=== PATIENT | female | born 1940 | race Caucasian/White ===

== ENCOUNTER → 2024-08-06 11:36 | Outpatient (REF) | payer MEDICARE, BC, SELFPAY | LOC: HWRAD 11:36 | PROVIDERS: ATTENDING PHYSICIAN Family Medicine | DX: K40.90 Unilateral inguinal hernia, without obstruction or gangrene, not specified as recurrent (principal) | CPT/HCPCS: 74177; Q9967 ==

== ENCOUNTER 2024-08-20 20:52 | Emergency (ER) | payer MEDICARE, BC, SELFPAY ==
[2024-08-20 20:54] VITALS: BP 154/114
[2024-08-20] MEDS: ZOFRAN ODT (ORALLY DISINTEGRATING) 4 MG PO (21:02)
[2024-08-20 21:12] LABS: % Basophils 0.7 % (0-2); % Eosinophils 5.5 % (0-6); % Immature Granulocytes 0.3 % (0-0.5); % Lymphocytes 25.5 % (20.5-51.1); % Monocytes 8.5 % (1.7-9.3); % Neutrophils 59.5 % (42.2-75.2); Absolute Basophils 0.1 10^3/uL (0-0.2); Absolute Eosinophils 0.4 10^3/uL (0-0.7); Absolute Lymphocytes 1.8 10^3/uL (1.2-3.4); Absolute Monocytes 0.6 10^3/uL (0.1-0.6); Absolute Neutrophils 4.1 10^3/uL (1.4-6.5); Hematocrit 37.1 % (37.0-47.0); Hemoglobin 12.4 g/dL (12.0-16.0); Mean Corp Hgb Conc. 33.4 g/dL (33.0-37.0); Mean Corpuscular Hgb 28.9 pg (27.0-31.0); Mean Corpuscular Volume 86.5 fL (81.0-99.0); Mean Platelet Volume 8.7 fL (7.4-10.4); Nucleated Red Blood Cells % 0 %; Platelet Count 221 10^3/uL (130-400); Red Blood Cell Count 4.29 10^6/uL (4.20-5.40); Red Cell Dist. Width 13.3 % (11.5-14.5); White Blood Cell Count 6.9 10^3/uL (4.8-10.8)
[2024-08-20 21:31] LABS: ALT (SGPT) 18 U/L (0-35); AST (SGOT) 25 U/L (14-36); Albumin 4.7 g/dl (3.5-5.0); Alkaline Phosphatase 65 U/L (38-126); Blood Urea Nitrogen 26 mg/dl (7-17); Calcium 9.6 mg/dl (8.4-10.2); Carbon Dioxide 24 mmol/L (22-30); Chloride 106 mmol/L (98-107); Glucose 149 mg/dl (70-99); Lipase 279 U/L (23-300); Potassium 4.7 mmol/L (3.5-5.1); Sodium 142 mmol/L (135-145); Total Protein 7.4 g/dl (6.3-8.2); eGFR > 60.00
--- NOTE | 2024-08-20 22:47 | ED.GENMED ---
History of Present Illness
General
Chief Complaint: Abdominal Symptoms
Source: patient
Exam Limitations: none
Time Seen by Provider: 08/20/24 22:38
History of Present Illness
History of Present Illness:
See MDM
Past History
Past History
ED Past Medical History: HTN and Other (MS)
Social History
Tobacco: Non-smoker
Alcohol: None
Drug: None
Personal:
Living: with family
Phy Exam
Physical Exam
Physical Exam:
See MDM
Course
Orders/Labs/Results
Orders:
Orders
08/20/24 21:01
Ondansetron Orally Disint [Zofran Odt (Orally Disintegrating)] 4 mg .ROUTE .STK-MED ONE
08/20/24 21:02
Ondansetron Orally Disint [Zofran Odt (Orally Disintegrating)] 4 mg PO NOW STA
08/20/24 21:07
Complete Blood Count/With Diff Urgent
Comprehensive Metabolic Panel Urgent
Lipase Urgent
08/20/24 22:47
Ketorolac [Toradol] 30 mg IM NOW STA
08/21/24 00:00
US Abdomen Complete/Upper Urgent
Reason For Exam: RUQ pain
Abnormal Lab Results
08/20/24
21:07
BUN 26 H mg/dl
(7-17)
Glucose 149 H mg/dl
(70-99)
08/20/24 21:07
08/20/24 21:07
Vital Signs
Initial and Last Documented VS:
Initial Vital Signs
Temp Pulse Resp BP Pulse Ox
99.2 F 80 24 154/114 97
08/20/24 20:54 08/20/24 20:54 08/20/24 20:54 08/20/24 20:54 08/20/24 20:54
Last Documented Vital Signs
Temp Pulse Resp BP Pulse Ox
98.0 F 75 24 149/79 93
08/20/24 23:26 08/20/24 23:26 08/20/24 20:54 08/20/24 23:26 08/20/24 23:26
MDM/Problems Addressed
Differential Diagnosis Includes:
HPI and MDM Narrative:
84-year-old female presenting to the ED for evaluation of ongoing abdominal pain. Patient had outpatient CT showing left inguinal hernia. No evidence of small bowel obstruction. There is also concern for chronic inflammatory changes of the
gallbladder versus possible neoplasm she is scheduled to see surgery next week and scheduled for outpatient ultrasound. Patient developed worsening pain today and called 911. While in the waiting room, her pain self resolved. Patient states she
is feeling much better and feels like her left lower groin hernia is improving. Patient still uncomfortable and requesting ultrasound
Physical exam
General: Well appearing and non-toxic
HEENT: protecting airway
Neck: appears supple
CV: No evidence of cyanosis
Resp: No accessory muscle use
Abd: Non-distended. Palpable hernia left inguinal canal. No skin changes
Extremities: No deformities
Neuro: alert
Psych: Normal affect
Skin: Intact
Problems Addressed including Acute and Chronic Conditions affecting care:
1. Left inguinal hernia
Acuity: acute
Prognosis: stable
Details: Recent CT showed no evidence of small bowel obstruction. Symptoms are improving somewhat. She has outpatient appointment with surgery next week
Updates
Ultrasound without acute pathology. Patient states she wants to go home and feels better
Differential Diagnosis (but not limited to): Small bowel obstruction, hernia
Testing considered: Repeat CT but symptoms are improving
Drug therapy (if applicable): OTC meds, please see d/c instruction regarding Rx drugs
Amount and/or Complexity of Data Reviewed
Clinical info obtained from: Patient
External data reviewed: N/A
Labs I independently reviewed (but not limited to): White blood cell count
Radiology: Ultrasound report reviewed
Pulse Ox: not hypoxic
EKG independently reviewed: N/A
Systems Engineer: N/A
Critical Care: N/A
Risk of Complication:
Social Determinants of health: Good social support
Discussed with other providers: N/A
Escalation of Care includes Admit/Obs: After being observed in the Emergency Department, pt stable for discharge.
Occasional wrong word or 'sound a like' substitutions may have occurred due to the inherent limitations of voice recognition software. Read the chart carefully and recognize, using context, where substitutions have occurred.
*Critical Care Note
Total Time (30-74mins, 75-104mins- exclusive of procedures): Not Applicable
ED Attending Note
-
Portions of this chart may have been created with voice recognition software.� Occasional wrong word or��sound alike� substitutions may have occurred due to the inherent limitations of voice recognition software.
Discharge Plan
Departure
Patient Disposition: Home (Routine Discharge)
Date of Disposition: 08/21/24
Time of Disposition: 01:33
Patient with high blood pressure during this ER visit?: Yes
Discharge Problem:
Inguinal hernia
Instructions: BLOOD PRESSURE
Prescriptions:
No Action
acetaminophen-codeine 1 TABLET tablet
1 tab PO Q4HPRN PRN (Reason: pain) Qty: 12 0RF
Referrals:
UNKNOWN - PT DOES,NOT KNOW [Unknown Provider] -
Activity Restrictions/Additional Instructions:
Please keep your appointment with the surgeon. Start taking a daily stool softener. Please return for worsening symptoms.
Interventions
Interventions:
*Risk Screen - Suicide Last Done: 08/20/24 20:54
*General Assessment Last Done: 08/20/24 23:27
*Neglect/Abuse Screening Last Done: 08/20/24 20:54
RO-Zpmehe-Xfmypfrkna Assessment Last Done: 08/20/24 23:32
Discharge Date and Time
Print Language: SETSWANA
[2024-08-20] MEDS: TORADOL 30 MG IM (23:24)
[2024-08-20 23:26] VITALS: BP 149/79
[2024-08-20 23:29] VITALS: BMI 26.2
[2024-08-21 01:51] VITALS: BP 171/82
== END 2024-08-21 01:52 | disposition home or self-care (01) ==
LOC: EMR 20:52
PROVIDERS: EMERGENCY PHYSICIAN Student in an Organized Health Care Education/Training Program; FAMILY PHYSICIAN Family Medicine
DX: K40.90 Unilateral inguinal hernia, without obstruction or gangrene, not specified as recurrent (principal); I10 Essential (primary) hypertension; G35 Multiple sclerosis; Z88.4 Allergy status to anesthetic agent; Z88.3 Allergy status to other anti-infective agents; Z88.0 Allergy status to penicillin; Z88.2 Allergy status to sulfonamides
CPT/HCPCS: 99284; 96372; 76700; 80053; 83690; 85025

== ENCOUNTER → 2024-08-29 08:47 | Day surgery (SDC) | payer MEDICARE, BC, SELFPAY ==
[2024-08-29 09:36] LABS: Hematocrit 39.1 % (37.0-47.0); Hemoglobin 13.1 g/dL (12.0-16.0); Mean Corp Hgb Conc. 33.5 g/dL (33.0-37.0); Mean Corpuscular Hgb 30.2 pg (27.0-31.0); Mean Corpuscular Volume 90.1 fL (81.0-99.0); Mean Platelet Volume 8.9 fL (7.4-10.4); Platelet Count 219 10^3/uL (130-400); Red Blood Cell Count 4.34 10^6/uL (4.20-5.40); White Blood Cell Count 6.1 10^3/uL (4.8-10.8)
[2024-08-29 10:27] LABS: Blood Urea Nitrogen 17 mg/dl (7-17); Calcium 9.8 mg/dl (8.4-10.2); Carbon Dioxide 27 mmol/L (22-30); Chloride 102 mmol/L (98-107); Glucose 103 mg/dl (70-99); Potassium 5.5 mmol/L (3.5-5.1); Sodium 142 mmol/L (135-145)
== END ==
LOC: SDSPAT 08:47
PROVIDERS: ATTENDING PHYSICIAN Surgery; FAMILY PHYSICIAN Family Medicine
DX: Z01.810 Encounter for preprocedural cardiovascular examination (principal); Z01.812 Encounter for preprocedural laboratory examination
CPT/HCPCS: 93005; 36415; 80048; 85027

== ENCOUNTER 2024-09-03 06:48 | Day surgery (SDC) | payer MEDICARE, BC, SELFPAY ==
[2024-08-29 09:20] VITALS: BMI 27.8
[2024-09-03] VITALS (14 sets, daily range): BP systolic 150–190; BP diastolic 68–87
[2024-09-03] MEDS: TYLENOL 1000 MG PO (08:59)
--- NOTE | 2024-09-03 09:33 | W.SUR.PREOP ---
Pre-Operative Surgical Note
-
I have examined this patient prior to the performance of the scheduled procedure.
The patient's condition is unchanged from the time of the current History and
Physical and the patient is able to undergo the scheduled procedure.
--- NOTE | 2024-09-03 11:43 | W.IMMPOSTOP ---
Surgical Immed Post Op Note
-
Primary Surgeon: Brandon
Assisting Surgeon: Mike KEYES
Pre-op Diagnosis: LIH
Post-op Diagnosis: LIH - direct
Procedure Performed: RAL JAYY repair LIH with mesh - 3D Max Lg mid weight
Anesthesia Type: GETA + 0.25% Marcaine
Specimen / Cultures: none
Estimated Blood Loss: 6mL
Complications: none
Operative Findings: Left direct inguinal hernia. Indirect and femoral space normal. 3D max large weight mesh repair secured to Tavon's ligament with 2-0 Vicryl. Peritoneal flap closed with 2-0 Monocryl STRATAFIX and a couple interrupted 2-0
Vicryl's superior medially where peritoneal flap was thin (not adjacent to mesh). Gallbladder with filmy adhesions difficult to visualize down to infundibulum. Will review with patient and consider subsequent MR imaging.
Patient's updated postoperatively in the waiting area.
--- NOTE | 2024-09-03 12:47 | OR.RPT ---
Operative Report
Operative Report
Date of operative procedure: 09/03/2024
Primary Surgeon: Too Taylor MD
Assisting Surgeon: WALI Alejandre
Pre-op Diagnosis: Left inguinal hernia
Post-op Diagnosis: Left inguinal hernia, direct
Procedure Performed: Robotic assisted laparoscopic JAYY repair left inguinal hernia with mesh; 3D max large mid weight
Anesthesia Type: GETA +0.25% Marcaine
Specimen / Cultures: None/none
Estimated Blood Loss: 6 mL
Complications: None immediate
Indications for operative procedure: Patient is an 84-year-old female recently seen in outpatient surgical evaluation secondary to a 3-month history of intermittent swelling in the left inguinal region. She has had a few instances of more severe
pain to the point that she was evaluated in the emergency department when she had symptoms of temporary incarceration with nausea and vomiting. The hernia was able to be reduced, her symptoms were alleviated and she was subsequently discharged.
Outpatient surgical evaluation confirmed the presence of a readily apparent, reducible left inguinal hernia. I reviewed with the patient and her treatment options. She was in agreement to proceed with surgical repair. We discussed various
operative approaches and have elected to proceed with a robotic assisted laparoscopic left inguinal herniorrhaphy with mesh. The anticipated operative procedure was fully reviewed in detail with the patient preoperatively obtaining written informed
consent.
Brief summary of operative Findings: Left direct inguinal hernia. Left indirect and femoral space normal. 3D max large mid weight mesh repair secured to Tavon's ligament with 2-0 Vicryl x 2. Peritoneal flap closed with 2-0 Monocryl STRATAFIX and
a couple interrupted 2-0 Vicryl's superior medially where peritoneal flap was thin (not adjacent to mesh).
Gallbladder with filmy adhesions difficult to visualize down to infundibulum. Will review with patient and consider subsequent MR imaging.
Operation detail: The patient was identified in the preoperative holding area. I confirmed the surgical site and side with the patient preoperatively which was then marked and initialed by myself. She was interviewed by the anesthesia and nursing
staff then brought back to the operating room. The patient was placed on the operating table in supine position. Her bilateral upper extremities were carefully padded and tucked at the side utilizing the arm guard positioning system. Pneumatic
compression boots were on the bilateral lower extremities. Following induction of general endotracheal anesthesia the patient was administered Ancef 2 g IV for prophylactic antibiotic coverage. The patient's anterior abdominal wall was now widely
and sterilely prepped with ChloraPrep and then draped in the usual manner. The surgical timeout was completed and the procedure was confirmed.
I initially proceeded with Veress needle insufflation in the left subcostal midclavicular line location. Once insufflated to 12 mmHg pressure then an epigastric 8 mm trocar was placed just to the left of midline. The robotic scope was inserted,
there was no evidence of iatrogenic injury from access. The Veress needle was withdrawn and replaced by an 8 mm trocar at the same location. A right midclavicular line 8 mm trocar was placed. Inspection of the right upper quadrant identified the
gallbladder. There were a few filmy omental adhesions in the area. The fundic region was flaccid and with slightly thickened white-suzanne appearance. The gallbladder was carefully grasped with an atraumatic grasper and retracted anteriorly. Around
the body there were some adhesions to it making it more challenging to visualize the infundibulum. The infundibular region appeared a bit distended but without wall thickening or edema. Central aspect of the gallbladder difficult to visualize but
there were no palpable masses.
The patient was then transition into Trendelenburg to expose the inguinal and pelvic space and the robot was docked.
At the surgeon console inspection of the pelvis confirmed the presence of a left direct inguinal hernia containing peritoneum and significant amount of preperitoneal fat as well. There was peritoneal thickening around the neck of the hernia sac
indicative of chronic inflammatory changes but no incarcerated visceral contents. There were no additional incidental intra-abdominal findings.
I initially began with creation of a peritoneal flap at the level of the left ASIS to the left medial umbilical ligament by the midline. The preperitoneal plane was now established along the length of the flap and developed inferiorly down to the
inguinal space. The medial dissection proceeded until the notch of the pubic symphysis was exposed at the midline followed by Tavon's ligament on the left side. Tavon's ligament was now cleared through the direct and femoral space at which point
I carefully and fully reduced the herniated preperitoneal fat and peritoneum completely off the pseudosac of the direct space. The underside of Tavon's ligament was exposed as well. The peritoneal flap was now mobilized laterally down to the
internal ring. The peritoneum was now carefully mobilized off the internal ring and round ligament at the level of the internal ring. The round ligament was now circumferentially mobilized and carefully cauterized to divide it which aided with
continued mobilization of the peritoneal flap without disruption. The posterior dissection continued until there was wide exposure of the myopectineal orifice/iliopubic tract. There was no evidence of any lipoma within the inguinal canal.
With the myopectineal orifice now completely exposed hemostasis was confirmed. A 3D max large mid weight mesh was utilized for repair. The mesh was positioned parallel to the iliopubic tract. It was secured at 2 separate locations inferior
medially on Tavon's ligament with 2 simple interrupted 2-0 Vicryl sutures. The patient was now begun to be taken out of Trendelenburg to confirm that the posterior aspect of the mesh was lying flat and that there was no shelling or undermining of
the mesh by the peritoneal edge. The insufflation pressure was also reduced down to 8 mmHg pressure. The peritoneal flap was now closed with a 2-0 Monocryl STRATAFIX spiral suture with a running continuous stitch started laterally to medially.
Essentially parallel to the medial umbilical ligament the peritoneum and it was reapproximated/closed utilizing the same 2-0 Monocryl STRATAFIX spiral suture. The hernia sac was ligated at its neck with a 2-0 Vicryl suture ligature. 2
additional separate interrupted 2-0 Vicryl sutures were utilized to approximate the peritoneum to the posterior sheath/linea alba area where there was some thinning and exposure to the rectus muscle as the patient had a previous mini laparotomy for
tubal ligation in the distant past. This area was well above the position mesh and in addition to closing the peritoneum the omentum was nicely draped over all of the abdominal contents to cover this area as well.
A flexible suction catheter was placed through an 8 mm trocar and introduced into the peritoneal flap to evacuate the air out of the preperitoneal space. This again confirmed good positioning of the inguinal hernia mesh. There was no shelling or
folding of the mesh and no undermining and mesh by the peritoneal edge.
At this point the robot was undocked. All sponge instrument and needle counts were confirmed to be correct x 2. The CO2 insufflation was now carefully evacuated out of the abdominal cavity. The trocar sites were removed as well as the flexible
suction catheter. Skin was closed with 4-0 Monocryl. Sterile surgical glue dressings were applied. The patient tolerated the procedure well and was transferred to the recovery unit for routine postoperative monitoring.
I was present for the entirety of the operative procedure.
--- NOTE | 2024-09-03 13:20 | PTCARENOTE ---
Pt remains unarouseable, when eyes opened, pupils 2mm briskly reactive, move side to side. Pt does not respond to name or tactile sensation. VSS. Dr Haro in to assess pt as well, will continue to monitor
--- NOTE | 2024-09-03 14:11 | PTCARENOTE ---
pt now more responsive, opens eyes to name, reports she needs to urinate, placed on bedpan, then will send to sds
== END 2024-09-03 15:06 | disposition home or self-care (01) ==
LOC: SDS 06:48
PROVIDERS: ATTENDING PHYSICIAN Surgery; FAMILY PHYSICIAN Family Medicine
PROC: 0YU64JZ Supplement Left Inguinal Region with Synthetic Substitute, Percutaneous Endoscopic Approach (ICD-10-PCS; 2024-09-03)
PROC: 8E0W4CZ Robotic Assisted Procedure of Trunk Region, Percutaneous Endoscopic Approach (ICD-10-PCS; 2024-09-03)
DX: K40.90 Unilateral inguinal hernia, without obstruction or gangrene, not specified as recurrent (principal)
CPT/HCPCS: 49650; C1781

== ENCOUNTER → 2024-09-24 10:31 | Outpatient (REF) | payer MEDICARE, BC, SELFPAY | LOC: RAD 10:31 | PROVIDERS: ATTENDING PHYSICIAN Internal Medicine Gastroenterology; FAMILY PHYSICIAN Family Medicine | DX: R13.19 Other dysphagia (principal); R13.12 Dysphagia, oropharyngeal phase | CPT/HCPCS: 74221 ==

== ENCOUNTER → 2024-10-23 13:00 | Outpatient (REF) | payer MEDICARE, BC, SELFPAY | LOC: PAVMRI 13:00 | PROVIDERS: ATTENDING PHYSICIAN Internal Medicine Gastroenterology; FAMILY PHYSICIAN Family Medicine | DX: R93.5 Abnormal findings on diagnostic imaging of other abdominal regions, including retroperitoneum (principal); R13.19 Other dysphagia; R13.12 Dysphagia, oropharyngeal phase | CPT/HCPCS: 74183; A9575 ==

== ENCOUNTER → 2024-11-08 09:18 | Outpatient (REF) | payer MEDICARE, BC, SELFPAY | LOC: WDC 09:18 | PROVIDERS: ATTENDING PHYSICIAN Surgery; FAMILY PHYSICIAN Family Medicine | DX: N64.52 Nipple discharge (principal) | CPT/HCPCS: 76642; 77062; 77066 ==

== ENCOUNTER 2024-11-09 14:49 | Outpatient (RCR) | payer MEDICARE, BC, SELFPAY | END 2024-11-09 23:59 | disposition home or self-care (01) | LOC: RPT 14:49 | PROVIDERS: ATTENDING PHYSICIAN Specialist; FAMILY PHYSICIAN Family Medicine | DX: G35 Multiple sclerosis (principal); R26.89 Other abnormalities of gait and mobility; Z73.6 Limitation of activities due to disability | CPT/HCPCS: 97110; 97112; 97162 ==

== ENCOUNTER → 2024-11-16 07:26 | Outpatient (REF) | payer MEDICARE, BC, SELFPAY ==
--- NOTE | 2024-11-16 14:47 | OID.BR.INTR ---
[facility] Breast Navigator - Initial
- -
Date of Contact: 11/16/24
Met with patient. Patient given written information on navigator services available at [facility]. Will follow up as needed per protocol.
== END ==
LOC: WDC 07:26
PROVIDERS: ATTENDING PHYSICIAN Surgery
DX: N63.10 Unspecified lump in the right breast, unspecified quadrant (principal); N63.41 Unspecified lump in right breast, subareolar
CPT/HCPCS: 88305; 19083; A4648

== ENCOUNTER 2024-11-28 12:33 | Outpatient (RCR) | payer MEDICARE, BC, SELFPAY | END 2024-11-28 23:59 | disposition home or self-care (01) | LOC: RPT 12:33 | PROVIDERS: ATTENDING PHYSICIAN Specialist; FAMILY PHYSICIAN Family Medicine | DX: G35 Multiple sclerosis (principal); R26.89 Other abnormalities of gait and mobility; Z73.6 Limitation of activities due to disability | CPT/HCPCS: 97110; 97112 ==

== ENCOUNTER → 2024-12-03 13:29 | Outpatient (REF) | payer MEDICARE, BC, SELFPAY | LOC: WDC 13:29 | PROVIDERS: ATTENDING PHYSICIAN Surgery | DX: C50.411 Malignant neoplasm of upper-outer quadrant of right female breast (principal) | CPT/HCPCS: 19285; A4648 ==

== ENCOUNTER → 2024-12-04 07:45 | Outpatient (REF) | payer MEDICARE, BC, SELFPAY | LOC: WDC 07:45 | PROVIDERS: ATTENDING PHYSICIAN Surgery | DX: C50.411 Malignant neoplasm of upper-outer quadrant of right female breast (principal) | CPT/HCPCS: 88305; 88307; 76098 ==

== ENCOUNTER → 2025-02-26 14:25 | Outpatient (REF) | payer MEDICARE, BC, SELFPAY | LOC: HWRAD 14:25 | PROVIDERS: ATTENDING PHYSICIAN Family Medicine | DX: R22.1 Localized swelling, mass and lump, neck (principal) | CPT/HCPCS: 76536 ==

== ENCOUNTER → 2025-06-19 11:21 | Outpatient (REF) | payer MEDICARE, BC, SELFPAY ==
[2025-06-19 12:08] LABS: Hematocrit 38.1 % (37.0-47.0); Hemoglobin 12.4 g/dL (12.0-16.0); Mean Corp Hgb Conc. 32.5 g/dL (33.0-37.0); Mean Corpuscular Volume 90.5 fL (81.0-99.0); Nucleated Red Blood Cells % 0 %; Platelet Count 211 10^3/uL (130-400); Red Cell Dist. Width 12.8 % (11.5-14.5)
== END ==
LOC: HWLAB 11:21
PROVIDERS: ATTENDING PHYSICIAN Orthopaedic Surgery Sports Medicine; FAMILY PHYSICIAN Family Medicine
DX: M17.0 Bilateral primary osteoarthritis of knee (principal); K92.1 Melena
CPT/HCPCS: 36415; 85025